=== PATIENT | female | born 1985 | race Caucasian/White ===

== ENCOUNTER → 2016-08-16 | Outpatient (CLI) | payer OTHER ==
[2016-08-16 20:07] LABS: BLOOD UREA NITROGEN 8 MG/DL (7-18); CREATININE FOR GFR 1.02 MG/DL (0.55-1.02); GLOMERULAR FILTRATION RATE > 60.0 (>60)
== END ==
LOC: M WUC 12:23
PROVIDERS: ATTEND Physician Assistant
DX: M47.892 Other spondylosis, cervical region (principal)

== ENCOUNTER → 2017-05-01 | Outpatient (CLI) | payer OTHER ==
[2017-05-01 17:30] LABS: ALBUMIN 3.8 GM/DL (3.2-5.2); ALBUMIN/GLOBULIN RATIO 1.15 (1.00-1.93); ALKALINE PHOSPHATASE 65 U/L (45-117); ALT/SGPT 16 U/L (12-78); ANION GAP 7 MEQ/L (8-16); AST/SGOT 11 U/L (7-37); BILIRUBIN,TOTAL 0.3 MG/DL (0.2-1.0); BLOOD UREA NITROGEN 12 MG/DL (7-18); C REACTIVE PROTEIN QUANTITATIV 0.58 MG/DL (0.00-0.30); CALCIUM LEVEL 8.4 MG/DL (8.5-10.1); CARBON DIOXIDE LEVEL 27 MEQ/L (21-32); CHLORIDE LEVEL 104 MEQ/L (98-107); CREATININE FOR GFR 0.85 MG/DL (0.55-1.30); GLOMERULAR FILTRATION RATE > 60.0 (>60); GLUCOSE, FASTING 157 MG/DL (70-100); POTASSIUM SERUM 4.3 MEQ/L (3.5-5.1); SODIUM LEVEL 138 MEQ/L (136-145); TOTAL PROTEIN 7.1 GM/DL (6.4-8.2)
[2017-05-01 17:50] LABS: HEMATOCRIT 39.6 % (36.0-47.0); HEMOGLOBIN 13.3 g/dl (12.0-16.0); MEAN CORPUSCULAR HEMOGLOBIN 29.8 pg (27.0-33.0); MEAN CORPUSCULAR HGB CONC 33.6 g/dl (32.0-36.5); MEAN CORPUSCULAR VOLUME 88.6 fl (80.0-96.0); PLATELET COUNT, AUTOMATED 254 10^3/uL (150-450); RED BLOOD COUNT 4.47 10^6/uL (4.00-5.40); RED CELL DISTRIBUTION WIDTH 13.3 % (11.5-14.5); WHITE BLOOD COUNT 6.5 10^3/uL (4.0-10.0)
[2017-05-01 18:28] LABS: ESTIMATED AVERAGE GLUCOSE 123 MG/DL (60-110); HEMOGLOBIN A1c 5.9 %
[2017-05-01 18:47] LABS: ERYTHROCYTE SEDIMENTATION RATE 8 mm/hr (0-20)
[2017-05-03 14:14] LABS: ANTINUCLEAR ANTIBODIES DIRECT Negative (Negative)
== END ==
LOC: M WUC 14:44
DX: R23.1 Pallor (principal)
CPT/HCPCS: 84443

== ENCOUNTER → 2017-05-03 | Outpatient (CLI) | payer OTHER ==
[2017-05-04 11:45] LABS: CRYOGLOBULINS NEGATIVE (NEGATIVE)
== END ==
LOC: M LAB 16:47
DX: R21 Rash and other nonspecific skin eruption (principal)
CPT/HCPCS: 82595

== ENCOUNTER → 2017-05-22 | Outpatient (CLI) | payer OTHER ==
[2017-05-22 19:41] LABS: BASO # 0.1 10^3/uL (0.0-0.2); EOS # 0.1 10^3/uL (0.0-0.50); EOS % 1.5 % (0.0-3.0); HEMOGLOBIN 12.9 g/dl (12.0-15.5); IMMATURE GRANULOCYTE % 0.4 % (0-3.0); LYMPH # 3.8 10^3/uL (1.5-4.5); LYMPH % 45.4 % (24.0-44.0); MEAN CORPUSCULAR HEMOGLOBIN 29.4 pg (27.0-33.0); MEAN CORPUSCULAR HGB CONC 33.9 g/dl (32.0-36.5); MEAN CORPUSCULAR VOLUME 86.6 fl (80.0-96.0); MONO # 0.6 10^3/uL (0.0-0.8); MONO % 6.7 % (0.0-5.0); NEUTROPHILS # 3.7 10^3/uL (1.8-7.7); PLATELET COUNT, AUTOMATED 274 10^3/uL (150-450); RED BLOOD COUNT 4.39 10^6/uL (4.00-5.40); RED CELL DISTRIBUTION WIDTH 13.2 % (11.5-14.5); WHITE BLOOD COUNT 8.3 10^3/uL (4.0-10.0)
[2017-05-22 20:14] LABS: TOTAL 25(OH) VITAMIN D 20.3 NG/ML (30.0-100.0)
[2017-05-22 20:32] LABS: ALBUMIN/GLOBULIN RATIO 1.21 (1.00-1.93); ALKALINE PHOSPHATASE 67 U/L (45-117); ALT/SGPT 17 U/L (12-78); ANION GAP 4 MEQ/L (8-16); AST/SGOT 10 U/L (7-37); BILIRUBIN,TOTAL 0.4 MG/DL (0.2-1.0); BLOOD UREA NITROGEN 8 MG/DL (7-18); CALCIUM LEVEL 8.6 MG/DL (8.5-10.1); CARBON DIOXIDE LEVEL 28 MEQ/L (21-32); CHLORIDE LEVEL 107 MEQ/L (98-107); CREATININE FOR GFR 0.86 MG/DL (0.55-1.30); GLOMERULAR FILTRATION RATE > 60.0 (>60); GLUCOSE, FASTING 132 MG/DL (70-100); POTASSIUM SERUM 3.7 MEQ/L (3.5-5.1); RHEUMATOID FACTOR QUANT < 10.0 IU/ML (<15.0); SODIUM LEVEL 139 MEQ/L (136-145); TOTAL PROTEIN 7.3 GM/DL (6.4-8.2)
[2017-05-22 21:56] LABS: ERYTHROCYTE SEDIMENTATION RATE 7 mm/hr (0-20)
[2017-05-25 00:08] LABS: ANTINUCLEAR ANTIBODIES DIRECT Negative (Negative)
== END ==
LOC: M WUC 17:24
DX: R51 Headache (principal)
CPT/HCPCS: 84443

== ENCOUNTER → 2017-06-30 | Outpatient (REF) | payer OTHER ==
[2017-06-30 13:44] LABS: RETIC HEMOGLOBIN EQUIVALENT 33.8 pg (24-36); RETICULOCYTE # 47.7 10^9/L (17-77); RETICULOCYTE % 1.1 % (0.5-1.5)
[2017-06-30 13:52] LABS: APPEARANCE, URINE HAZY (CLEAR); BACTERIA, URINE AUTO 1+ (NEGATIVE); BILIRUBIN, URINE AUTO NEGATIVE (NEGATIVE); BLOOD, URINE BLOOD NEGATIVE (NEGATIVE); COLOR, URINE YELLOW (YELLOW); GLUCOSE, URINE (UA) AUTO NEGATIVE (NEGATIVE); KETONE, URINE AUTO TRACE mg/dL (NEGATIVE); LEUKOCYTE ESTERASE, URINE AUTO TRACE (NEGATIVE); MUCUS, URINE SMALL (NEGATIVE); NITRITE, URINE AUTO NEGATIVE (NEGATIVE); PROTEIN, URINE AUTO NEGATIVE (NEGATIVE); RBC, URINE AUTO 1 /HPF (0-3); SPECIFIC GRAVITY URINE AUTO 1.016 (1.002-1.035); SQUAMOUS EPITHELIAL CELL UR AU 6 /HPF (0-6); WBC, URINE AUTO 9 /HPF (0-3)
[2017-06-30 14:17] LABS: IMMUNOGLOBULIN G 813 MG/DL (681-1648); IMMUNOGLOBULIN M 249 MG/DL (40-230); TOTAL PROTEIN 7.1 GM/DL (6.4-8.2)
[2017-06-30 14:19] LABS: REASON FOR REVIEW COLD AGGLUTEN; SLIDE REVIEW Report; SOURCE PERIPHERAL SMEAR
[2017-06-30 14:30] LABS: TOTAL PROTEIN,RANDOM URINE 13.9 MG/DL (0.0-12.0); URINE TOTAL PROTEIN 13.9 MG/DL (0-12)
[2017-07-02 00:06] LABS: FREE KAPPA LIGHT CHAINS SERUM 15.9 mg/L (3.3-19.4); FREE LAMBDA LIGHT CHAINS SERUM 16.2 mg/L (5.7-26.3); KAPPA/LAMBDA RATIO SERUM 0.98 (0.26-1.65)
[2017-07-03 12:02] LABS: ALBUMIN 4.39 GM/DL (3.29-5.55); ALBUMIN % 61.9 % (55.8-66.1); ALPHA-1-GLOBULIN % 4.4 % (2.9-4.9); ALPHA-1-GLOBULINS 0.31 GM/DL (0.17-0.41); ALPHA-2-GLOBULINS 0.75 GM/DL (0.42-0.99); ALPHA-2-GLOBULINS % 10.5 % (7.1-11.8); BETA-1-GLOBULINS 0.37 GM/DL (0.28-0.60); BETA-1-GLOBULINS % 5.2 % (4.7-7.2); BETA-2-GLOBULINS 0.31 GM/DL (0.19-0.55); BETA-2-GLOBULINS % 4.3 % (3.2-6.5); GAMMA GLOBULIN % 13.7 % (11.1-18.8); GAMMA GLOBULINS 0.97 GM/DL (0.65-1.58); SPEP INTERPRETATION SPN
[2017-07-06 15:48] LABS: UPEP INTERPRETATION NO M-SPIKE NOTED; URINE VOLUME RANDOM ML
== END ==
LOC: M LAB REF 13:33
DX: Z00.00 Encounter for general adult medical examination without abnormal findings (principal)
CPT/HCPCS: 84165

== ENCOUNTER → 2017-07-13 | Outpatient (REF) | payer OTHER ==
[2017-07-13 13:57] LABS: INR 0.85; PROTHROMBIN TIME 11.7 SECONDS (12.4-14.5)
[2017-07-13 13:58] LABS: PARTIAL THROMBOPLASTIN TIME 37.6 SECONDS (26.8-37.9)
[2017-07-14 11:42] LABS: HEPATITIS B SURFACE ANTIGEN NEGATIVE (NEGATIVE)
[2017-07-14 11:54] LABS: HEPATITIS B CORE ANTIBODY IGM NEGATIVE (NEGATIVE)
[2017-07-14 11:54] LABS: HEPATITIS C VIRUS ABY INDEX < 0.0 INDEX (<0.8)
== END ==
LOC: M LAB REF 13:18
DX: D68.61 Antiphospholipid syndrome (principal)

== ENCOUNTER → 2017-08-23 | Outpatient (CLI) | payer OTHER ==
[2017-08-23 16:38] LABS: BLOOD UREA NITROGEN 9 MG/DL (7-18)
[2017-08-23 16:38] LABS: CREATININE FOR GFR 0.93 MG/DL (0.55-1.30); GLOMERULAR FILTRATION RATE > 60.0 (>60)
== END ==
LOC: M WUC 13:54
DX: M50.30 Other cervical disc degeneration, unspecified cervical region (principal)
CPT/HCPCS: 82565

== ENCOUNTER → 2017-12-19 | Outpatient (CLI) | payer OTHER ==
[2017-12-19 12:08] LABS: FREE T4 1.03 NG/DL (0.76-1.46); THYROID STIMULATING HORMONE 0.409 uIU/ML (0.358-3.740)
[2017-12-19 12:17] LABS: FOLLICLE STIMULATING HORMONE 4.6 mIU/mL; LUTEINIZING HORMONE 4.2 mIU/mL; PROLACTIN 5.6 NG/ML
[2017-12-20 12:56] LABS: CORTISOL AM 11.6 UG/DL (4.3-22.4)
== END ==
LOC: M WUC 09:32
DX: D49.7 Neoplasm of unspecified behavior of endocrine glands and other parts of nervous system (principal)
CPT/HCPCS: 83001

== ENCOUNTER → 2017-12-22 | Outpatient (CLI) | payer OTHER | LOC: M RAD 12:55 | DX: M75.51 Bursitis of right shoulder (principal); M25.311 Other instability, right shoulder | CPT/HCPCS: 73221 ==

== ENCOUNTER → 2018-12-10 | Outpatient (CLI) | payer OTHER | LOC: M WUC 13:21 | PROVIDERS: ATTEND Physical Medicine & Rehabilitation | DX: M47.26 Other spondylosis with radiculopathy, lumbar region (principal) ==

== ENCOUNTER 2020-07-19 21:25 | Emergency (ER) | payer OTHER ==
[~2020-07-19] VITALS: Ht 154.9 cm; Wt 59.1 kg
[2020-07-19 21:25] VITALS: BP 135/71
[2020-07-19] MEDS ORDERED: ARIP1TAB6 PO (21:37)
[2020-07-19] MEDS ORDERED: BUPR75TA5 PO (21:37)
[2020-07-19] MEDS ORDERED: AMPH1CAP5 PO (21:37)
--- NOTE | 2020-07-19 23:24 | REPVR ---
PROCEDURE INFORMATION: Exam: XR Left Foot Exam date and time: 07/19/2020 9:49 PM Age: 35 years old Clinical indication: Pain; Foot; Left; Additional info: Injury TECHNIQUE: Imaging protocol: XR Left foot. Views: 3 or more views. COMPARISON: No relevant prior studies available. FINDINGS: Bones/joints: No fracture. No dislocation. Joint spaces are preserved. Soft tissues: Soft tissue swelling over the 5th metatarsophalangeal joint. IMPRESSION: 1. No acute fracture. 2. Soft tissue swelling over the 5th metatarsophalangeal joint. Electronically signed by: Freedom Dowell On 07/19/2020 23:24:33 PM
[2020-07-20] MEDS ORDERED: LIDOCAINE 4% CREAM 5GM (LMX4) TOP ONE (00:55)
[2020-07-20] MEDS ORDERED: ANEC4CRE3 TOP (00:57)
== END 2020-07-20 01:10 | disposition home or self-care (01) ==
LOC: M ED 21:25
DX: S90.222A Contusion of left lesser toe(s) with damage to nail, initial encounter (principal); W22.8XXA Striking against or struck by other objects, initial encounter; Y92.410 Unspecified street and highway as the place of occurrence of the external cause; Y93.9 Activity, unspecified; Y99.9 Unspecified external cause status; F17.200 Nicotine dependence, unspecified, uncomplicated

== ENCOUNTER → 2020-09-01 | Outpatient (CLI) | payer OTHER ==
[~2020-09-01] MED LIST: AMPH1CAP5 PO; ANEC4CRE3 TOP; ARIP1TAB6 PO; BUPR75TA5 PO
--- NOTE | 2020-09-02 00:19 | ECWPNPC ---
PATIENT NAME: MARGIE MAZA : 1985 GENDER: FEMALE VISIT DATE: 09/01/2020 DISCHARGE DATE: 09/01/20922 VISIT LOCKED DATE TIME: PHYSICIAN: ADRIANA PEREIRA RESOURCE: ADRIANA PEREIRA REASON FOR APPOINTMENT 1. OSTEOARTHRITIS HISTORY OF PRESENT ILLNESS DEPRESSION SCREENING: PHQ-9 LITTLE INTEREST OR PLEASURE IN DOING THINGSSEVERAL DAYS FEELING DOWN, DEPRESSED, OR HOPELESSSEVERAL DAYS TROUBLE FALLING OR STAYING ASLEEP, OR SLEEPING TOO MUCHNOT AT ALL FEELING TIRED OR HAVING LITTLE ENERGYSEVERAL DAYS POOR APPETITE OR OVEREATING SEVERAL DAYS FEELING BAD ABOUT YOURSELF-OR THAT YOU ARE A FAILURE OR HAVE LET YOURSELF OR YOUR FAMILY DOWN SEVERAL DAYS TROUBLE CONCENTRATING ON THINGS, SUCH READING THE NEWSPAPER OR WATCHING TELEVISION NOT AT ALL MOVING OR SPEAKING SO SLOWLY THAT OTHER PEOPLE COULD HAVE NOTICED. OR THE OPPOSITE- BEING SO FIDGETY OR RESTLESS THAT YOU HAVE BEEN MOVING AROUND A LOT MORE THAN USUALMORE THAN HALF THE DAYS THOUGHTS THAT YOU WOULD BE BETTER OFF , OR OF HURTING YOURSELF IN SOME WAY?NOT AT ALL TOTAL SCORE:7 INTERPRETATIONMILD DEPRESSION PHQ-2 (2015 EDITION) LITTLE INTEREST OR PLEASURE IN DOING THINGS?SEVERAL DAYS FEELING DOWN, DEPRESSED, OR HOPELESS?SEVERAL DAYS TOTAL SCORE2 GENERAL: 35-YEAR-OLD FEMALE REFERRED BY [facility] [place] , HER PRIMARY CARE PROVIDER, DUE TO CHRONIC GENERALIZED BACK PAIN. PATIENT HAS HAD ISSUES WITH PAIN SINCE 2011. DENIES PRECIPITATING EVENT. DOES SAY THAT SHE WAS WORKING AT THE TIME AND HAD TO LIFT QUITE A BIT. HAS TRIED PHYSICAL THERAPY ON NUMEROUS OCCASIONS WITHOUT IMPROVEMENT. WAS FOLLOWING WITH [facility] AND TRIALED ON MEDICATIONS. APPROXIMATELY 1 YEAR AGO SHE WAS PLACED ON LYRICA AND STATES THAT THIS WAS HELPFUL. IMAGING DONE AT [facility] TO INCLUDE MRIS THAT WERE DONE A FEW YEARS AGO ARE NOT AVAILABLE FOR ME TO REVIEW TODAY. WE WILL TRY TO OBTAIN THOSE. NO BOWEL OR BLADDER INCONTINENCE. DENIES SADDLE PARESTHESIAS. - - -. FALL RISK SCREENING: SCREENING : NO FALLS REPORTED IN THE LAST YEAR , : NO FALLS REPORTED IN THE LAST YEAR. PAIN SCREENING: PATIENT HAS A COMPLAINT OF ACUTE OR CHRONIC PAIN :YES LOCATION OF PAIN:UPPER BACK, MID BACK, LOW BACK INTENSITY OF PAIN (SCALE OF 1 TO 10):7 WHAT DOES YOUR PAIN FEEL LIKE:ACHING, BURNING, SHARP, STABBING, THROBBING, SHOOTING DURATION:CONTINOUS, CONSTANT, ALL DAY, AWAKENS FROM SLEEP PAIN IS INCREASED BY:ACTIVITIES, PROLONGED STANDING PAIN IS DECREASED BY:OTHERS NOTHING HELPING, TENS UNITS NURSING NOTE: - - -. PAIN CENTER INTAKE QUESTIONS: DO YOU HAVE A HISTORY OF MRSA? :NO DO YOU TAKE A BLOOD THINNERS? :NO DO YOU HAVE ANY BLEEDING DISORDERS? :NO ANY NEW NUMBNESS OR WEAKNESS IN YOUR LEGS OR ARMS? :YES LEFT FOOT- FROM INJURY IN 07/19/2020 ANY PACEMAKER,DEFIBRILLATOR, OR DORSAL COLUMN STIMULATOR? :NO DO YOU HAVE ANY RASHES OR OPEN SORES? :NO ARE YOU ALLERGIC TO IV DYE? :NO ARE YOU DIABETIC? :NO NOT SURE ANY NEW PROBLEMS WITH YOUR MEDICATIONS? :NO HAVE YOU RECEIVED A VACCINE IN THE PAST 30 DAYS? :NO DO YOU PLAN TO RECEIVE A VACCINE IN THE NEXT 21 DAYS? :NO DO YOU NEED ANY PRESCRIPTION? :NO DO YOU TAKE ANY IMMUNOSUPPRESSIVE MEDICATIONS? :NO IS THERE A CHANCE YOU COULD BE ? :NO ARE YOU BREAST FEEDING? :NO CURRENT MEDICATIONS TAKING ABILIFY 5 MG TABLET 1 TABLET ORALLY ONCE A DAY TAKING BUPROPION HCL 75 MG TABLET 2 TABLETS ORALLY TWICE A DAY TAKING ARIPIPRAZOLE 5 MG TABLET 1 TABLET ORALLY ONCE A DAY TAKING LIDOCAINE 4 % CREAM 1 APPLICATION NEEDED EXTERNALLY THREE TIMES A DAY TAKING MULTI FOR HER - TABLET DIRECTED ORALLY NEEDED NOT-TAKING TRAMADOL HCL 50 MG TABLET 1 TABLET NEEDED ORALLY ONCE A DAY NOT-TAKING HYDROCODONE-ACETAMINOPHEN 5-325 MG TABLET 1 TABLET NEEDED ORALLY EVERY 6 HRS NOT-TAKING CYCLOBENZAPRINE HCL 5 MG TABLET 1 TABLET AT BEDTIME NEEDED ORALLY ONCE A DAY NOT-TAKING NAPROXEN 250 MG TABLET 1 TABLET WITH FOOD OR MILK ORALLY TWICE A DAY, NOTES: NOT SURE OF DOSE NOT-TAKING LYRICA 300 MG CAPSULE 1 CAPSULE IN THE EVENING 1 TO 3 HOURS BEFORE BEDTIME ORALLY ONCE A DAY NOT-TAKING DEXTROAMPHETAMINE SULFATE 30 MG TABLET 1 TABLET IN THE MORNING ORALLY ONCE A DAY MEDICATION LIST REVIEWED AND RECONCILED WITH THE PATIENT PAST MEDICAL HISTORY BACK PAIN NECK PAIN RHEUMATOID ARTHRITIS- BILATERAL HANDS DIABETES MELLITUS- NOT SURE NICTINE DEPENDENCE LEFT FOOT PAIN BIPOLAR DISORDER DEPRESSION ANXIETY WHITE COAT SYNDROME ALLERGIES N.K.D.A. SURGICAL HISTORY TONSILLECTOMY HERNIA REPAIR CARPAL TUNNEL SURGERY- BILAERAL HANDS CHILD 2X FAMILY HISTORY FATHER: 60 YRS, DIABETES MOTHER: 53 YRS, DIABETES DAUGHTER(S): ALIVE 2DAUGHTER(S) - HEALTHY. MOTHER HAVE RHEUMATOID ARTHRITIS, FAMILY HISTORY OF PARKINSONISM. SOCIAL HISTORY GENERAL: TOBACCO USE ARE YOU A:CURRENT SMOKER ARE YOU INTERESTED IN QUITTING?NOT READY TO QUIT COUNSELED THE PATIENT ON SMOKING EFFECTS, EDUCATION [id number]/27/2021 HOW MANY CIGARETTES A DAY DO YOU SMOKE?11-20 1/2 PACK HOW SOON AFTER YOU WAKE UP DO YOU SMOKE YOUR FIRST CIGARETTE?6-30 MIN HOW OFTEN DO YOU SMOKE CIGARETTES?EVERY DAY PATIENT COUNSELED ON THE DANGERS OF TOBACCO USE AND URGED TO QUIT:09/01/2020 VAPORNO E-CIGARETTENO LATEX QUESTIONNAIRE LATEX ALLERGY : HAVE YOU EVER DEVELOPED ANY TYPE OF REACTION AFTER HANDLING LATEX PRODUCTS SUCH RUBBER GLOVES, CONDOMS, DIAPHRAGMS, BALLOONS, SOCKS, OR UNDERWEAR?NO LATEX ALLERGY : HAVE YOU EVER DEVELOPED ANY TYPE OF REACTION DURING OR AFTER DENTAL APPOINTMENT, VAGINAL/RECTAL EXAMINATION, SURGICAL PROCEDURE, OR ANY OTHER EXPOSURE?NO LATEX RISK : HAVE YOU EVER HAD ANY DIFFICULTY BREATHING OR HIVES AFTER EATING OR HANDLING ANY FRUITS, OR VEGETABLES; SUCH KIWI, BANANAS, STONE FRUITS, OR CHESTNUTSNO LATEX RISK : DO YOU HAVE A PREVIOUS PERSONAL HISTORY OF MORE THAN NINE SURGERIES, SPINA BIFIDA, OR REPEATED CATHERIZATIONS? NO LATEX RISK : ARE YOU FREQUENTLY EXPOSED TO LATEX PRODUCTS IN YOUR OCCUPATION?NO DATE ASKED : 09/01/2020 ALCOHOL USE: NO. RECREATIONAL DRUG USE DRUG USE?NO LANGUAGE LANGUAGES SPOKEN:[place] LEARNING BARRIERS / SPECIAL NEEDS CHANGE FROM LAST VISIT?NO BARRIERS TO LEARNING?NO HEARING IMPAIRED?YES COGNITIVELY IMPAIRED?YES : SOME TIMES- WHEN SHE STAED TAKING LYRICA READINESS TO LEARN?YES LEARNING PREFERENCES?NO LEARNING CAPABILITIES PRESENT?YES EMOTIONAL BARRIERS?YES COMMENTS BIPOLAR DISORDER , DEPRESSION ANXIETY SPECIAL DEVICES?YES :OTHER CAST FOR FOOT MILITARY TECHNOLOGY SPECIALIST NEEDED?NO MARLENE CARRERA HOSPITALIZATION/MAJOR DIAGNOSTIC PROCEDURE CHILD 2X REVIEW OF SYSTEMS CONSTITUTIONAL: ANY RECENT FEVER NO . CHILLS NO . WEIGHT CHANGE OF UNKNOWN REASONS NO . GASTROENTEROLOGY: NEW UNEXPLAINABLE CHANGES IN BOWEL CONTROL NO . CONSTIPATION NO . GENITOURINARY: ANY NEW CHANGE IN BLADDER CONTROL? NO . NEUROLOGY: NEW ONSET DIZZINESS OR NEUROLOGICAL CHANGES NOT MENTIONED NO . NEW NUMBNESS OR PAIN PATTERNS NOT MENTIONED AND PERTINENT TO TODAY'S VISIT NO . CARDIOLOGY: NEW CHEST PRESSURE NO . PATIENT DENIES NO . RESPIRATORY: UNEXPLAINABLE COUGH NO . NEW SHORTNESS OF BREATH NO . VITAL SIGNS WT 143 LBS, HT 62 IN, BMI 26.15 INDEX, BP 152/72 MM HG, HR 99 /MIN, RR 18 /MIN, TEMP 98.3 F, OXYGEN SAT % 99%, SAFE IN ENV? 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 EXAMINATION GENERAL EXAMINATION: GENERALNO ACUTE DISTRESS, WELL NOURISHED AND HYDRATED. PSYCHAPPROPRIATE MOOD AND AFFECT . NECK:NO LYMPHADENOPATHY, SUPPLE. LUNGS:CLEAR TO AUSCULTATION BILATERALLY, NO WHEEZES, RHONCHI, RALES. HEART:NO MURMURS, REGULAR RATE AND RHYTHM. MUSCULOSKELETAL: MUSCLE STRENGTH TESTING 5/5 BILATERAL UPPER AND LOWER EXTREMITIES.. LUMBAR:MULTIPLE AREAS OF TENDER SPOTS UPPER AND LOWER BACK/PARASPINAL INDICATIVE OF FIBROMYALGIA.. THORACIC SPINE:REPORTS PAIN WITH PALPATION OVER THORACIC SPINE AND PARASPINAL REGION BILATERALLY.. CERVICAL:TENDER WITH PALPATION OF HER CERVICAL SPINE AND PARASPINALS BILATERALLY.. NEUROLOGIC EXAM:NORMAL SENSATION TO LIGHT TOUCH UPPER AND LOWER EXTREMITIES.. DIAGNOSTIC TESTS REVIEWEDMRI LS SPINE 2011. ASSESSMENTS FIBROMYALGIA - M79.7 (PRIMARY) TREATMENT FIBROMYALGIA START LYRICA CAPSULE, 150 MG, 1 CAPSULE, ORALLY, BID, 30 DAYS, 60 CAPSULE, REFILLS 1 NOTES: ISTOP REGISTRY REVIEWED AND DEMONSTRATES COMPLLIANCE. PROCEDURE CODES FA211 ESTABILISHED PATIENT [facility] CHARGE DISPOSITION & COMMUNICATION FOLLOW UP PLEASE HAVE PATIENT SIGN RECORDS RELEASE FROM [facility] FOR MOST RECENT MRI IMAGING OF CERVICAL SPINE, THORACIC AND LUMBAR SPINE, 2 MONTHS (REASON: FOLLOW-UP AFTER STARTING LYRICA/REVIEW IMAGING FROM [facility] DONE 2 YEARS AGO.) ELECTRONICALLY SIGNED BY MANI MERCEDES ON 09/01/2020 AT 03:40 PM EDT DISCLAIMER : THIS IS A VISIT SUMMARY EXTRACTED FROM THE [employer] CHART. IT IS NOT A COPY OF THE [employer] PROGRESS NOTE. LINDA
== END ==
LOC: M PAIN 08:30
PROVIDERS: ATTEND Nurse Practitioner Family
DX: M79.7 Fibromyalgia (principal); M06.841 Other specified rheumatoid arthritis, right hand; M06.842 Other specified rheumatoid arthritis, left hand; M54.2 Cervicalgia; F17.210 Nicotine dependence, cigarettes, uncomplicated; F31.9 Bipolar disorder, unspecified; F41.9 Anxiety disorder, unspecified; Z79.899 Other long term (current) drug therapy

== ENCOUNTER → 2020-11-05 | Outpatient (CLI) | payer OTHER | LOC: M PAIN 09:15 | PROVIDERS: ATTEND Anesthesiology | DX: M41.9 Scoliosis, unspecified (principal); M79.7 Fibromyalgia; F17.210 Nicotine dependence, cigarettes, uncomplicated; Z86.59 Personal history of other mental and behavioral disorders; Z79.899 Other long term (current) drug therapy ==

== ENCOUNTER → 2020-11-17 | Outpatient (CLI) | payer OTHER ==
[2020-11-17 15:30] LABS: BASO # 0.1 10^3/uL (0.0-0.2); BASO % 1.5 % (0.0-1.0); EOS # 0.2 10^3/uL (0.0-0.5); HEMATOCRIT 40.7 % (36.0-47.0); HEMOGLOBIN 13.5 g/dl (12.0-15.5); LYMPH # 3.3 10^3/uL (1.5-5.0); MEAN CORPUSCULAR HEMOGLOBIN 29.7 pg (27.0-33.0); MEAN CORPUSCULAR HGB CONC 33.2 g/dl (32.0-36.5); MEAN CORPUSCULAR VOLUME 89.5 fl (80.0-96.0); MONO # 0.7 10^3/uL (0.0-0.8); MONO % 8.5 % (2.0-8.0); NEUTROPHILS # 3.6 10^3/uL (1.5-8.5); NEUTROPHILS % 45.7 % (36.0-66.0); PLATELET COUNT, AUTOMATED 317 10^3/uL (150-450); RED BLOOD COUNT 4.55 10^6/uL (4.00-5.40)
[2020-11-17 16:05] LABS: ALBUMIN 3.6 GM/DL (3.2-5.2); ALT/SGPT 15 U/L (12-78); BILIRUBIN,DIRECT < 0.1 MG/DL (0.0-0.2); BILIRUBIN,TOTAL 0.2 MG/DL (0.2-1.0); BLOOD UREA NITROGEN 7 MG/DL (7-18); CALCIUM LEVEL 9.1 MG/DL (8.5-10.1); CARBON DIOXIDE LEVEL 29 MEQ/L (21-32); CHLORIDE LEVEL 108 MEQ/L (98-107); CHOLESTEROL LEVEL 169 MG/DL (<200); CHOLESTEROL RISK RATIO 4.828 (<5); CREATININE FOR GFR 0.85 MG/DL (0.55-1.30); GLOMERULAR FILTRATION RATE > 60.0 (>60); GLUCOSE, FASTING 146 MG/DL (70-100); GLUCOSE,RANDOM 146 MG/DL (LESS THAN 200); HDL CHOLESTEROL 35 MG/DL (>40); LDL CHOLESTEROL 116 MG/DL (<100); NON-HDL-C 134 MG/DL; PHOSPHORUS LEVEL 2.7 MG/DL (2.5-4.9); POTASSIUM SERUM 4.6 MEQ/L (3.5-5.1); SODIUM LEVEL 140 MEQ/L (136-145); THYROID STIMULATING HORMONE 0.732 uIU/ML (0.358-3.740); TOTAL PROTEIN 6.6 GM/DL (6.4-8.2); TRIGLYCERIDES LEVEL 92 MG/DL (<150)
[2020-11-17 16:08] LABS: TOTAL 25(OH) VITAMIN D 17.4 NG/ML (30.0-100.0)
[2020-11-17 16:50] LABS: HEMOGLOBIN A1c 5.8 %
== END ==
LOC: M PLALAB 12:17
PROVIDERS: ATTEND Registered Nurse
DX: F31.75 Bipolar disorder, in partial remission, most recent episode depressed (principal)

== ENCOUNTER 2021-12-25 18:31 | Emergency (ER) | payer OTHER ==
[~2021-12-25] VITALS: Ht 154.9 cm; Wt 68.7 kg
[2021-12-25 19:26] LABS: BASO # 0.1 10^3/uL (0.0-0.2); BASO % 0.6 % (0.0-1.0); EOS # 0.3 10^3/uL (0.0-0.5); EOS % 2.8 % (0.0-3.0); HEMATOCRIT 37.9 % (36.0-47.0); LYMPH # 2.3 10^3/uL (1.5-5.0); LYMPH % 19.3 % (24.0-44.0); MEAN CORPUSCULAR HGB CONC 34.3 g/dl (32.0-36.5); MEAN CORPUSCULAR VOLUME 84.4 fl (80.0-96.0); MONO # 0.9 10^3/uL (0.0-0.8); MONO % 7.1 % (2.0-8.0); NEUTROPHILS # 8.4 10^3/uL (1.5-8.5); NEUTROPHILS % 69.7 % (36.0-66.0); PLATELET COUNT, AUTOMATED 342 10^3/uL (150-450); RED BLOOD COUNT 4.49 10^6/uL (4.00-5.40); WHITE BLOOD COUNT 12.1 10^3/uL (4.0-10.0)
[2021-12-25 20:09] LABS: BLOOD UREA NITROGEN 8 MG/DL (9-23); CALCIUM LEVEL 9.7 MG/DL (8.5-10.1); CARBON DIOXIDE LEVEL 21 MMOL/L (20-31); CHLORIDE LEVEL 105 MMOL/L (98-107); CREATININE FOR GFR 0.55 MG/DL (0.55-1.30); GLOMERULAR FILTRATION RATE > 60.0 (>60); GLUCOSE, FASTING 154 MG/DL (60-100); HCG, SERUM QUANTITATIVE 74281.8 MIU/ML (<4.2); POTASSIUM SERUM 3.7 MMOL/L (3.5-5.1); SODIUM LEVEL 137 MMOL/L (136-145)
[2021-12-26 07:57] VITALS: BP 139/69
== END 2021-12-26 09:12 | disposition home or self-care (01) ==
LOC: M ED 18:31
DX: O20.0 Threatened abortion (principal); O26.852 Spotting complicating pregnancy, second trimester; O26.92 Pregnancy related conditions, unspecified, second trimester; M54.50 Low back pain, unspecified; O99.342 Other mental disorders complicating pregnancy, second trimester; O99.332 Smoking (tobacco) complicating pregnancy, second trimester; Z3A.13 13 weeks gestation of pregnancy; Z79.899 Other long term (current) drug therapy

== ENCOUNTER → 2022-02-24 | Outpatient (CLI) | payer OTHER ==
[2022-02-24 18:10] LABS: HEMATOCRIT 37.4 % (36.0-47.0); HEMOGLOBIN 12.5 g/dl (12.0-15.5); MEAN CORPUSCULAR HEMOGLOBIN 29.4 pg (27.0-33.0); MEAN CORPUSCULAR HGB CONC 33.4 g/dl (32.0-36.5); PLATELET COUNT, AUTOMATED 413 10^3/uL (150-450); RED BLOOD COUNT 4.25 10^6/uL (4.00-5.40); WHITE BLOOD COUNT 18.2 10^3/uL (4.0-10.0)
[2022-02-24 19:27] LABS: GC DNA AMPLIFICATION NEGATIVE (NEGATIVE)
[2022-02-24 19:35] LABS: HIV 1&2 SCREEN CENTAUR NEGATIVE (NEGATIVE)
[2022-02-24 20:24] LABS: HEMOGLOBIN A1c 5.3 % (4.0-6.0)
== END ==
LOC: M PLALAB 14:57
PROVIDERS: ATTEND Advanced Practice Midwife
DX: Z34.82 Encounter for supervision of other normal pregnancy, second trimester (principal)

== ENCOUNTER → 2022-02-24 | Outpatient (CLI) | payer OTHER | LOC: M WHC 14:39 | PROVIDERS: ATTEND Advanced Practice Midwife | DX: Z34.82 Encounter for supervision of other normal pregnancy, second trimester (principal); Z53.9 Procedure and treatment not carried out, unspecified reason ==

== ENCOUNTER → 2022-03-16 | Outpatient (CLI) | payer OTHER | LOC: M WHC 08:12 | PROVIDERS: ATTEND Advanced Practice Midwife | DX: Z34.82 Encounter for supervision of other normal pregnancy, second trimester (principal); Z36.89 Encounter for other specified antenatal screening; Z3A.24 24 weeks gestation of pregnancy ==